=== PATIENT | male | born 1970 | race African-American/Black ===

== ENCOUNTER 2022-02-17 04:07 | Emergency (ER) | payer MEDICAID, OTHER ==
[~2022-02-17] VITALS: Ht 170.2 cm; Wt 59.0 kg
[~2022-02-17 04:07] MED LIST: ALBU18HF2 IH; FLUT1DIS3 INH; LEVO-65 MT
[2022-02-17] MEDS ORDERED: KETOROLAC 60MG/2ML VIAL IM ONE (05:15)
[2022-02-17] MEDS ORDERED: IBUP-2029 MT (06:25)
[2022-02-17] MEDS ORDERED: CYCL10TA21 MT (06:25)
[2022-02-17] MEDS ORDERED: KETOROLAC 60MG/2ML VIAL IM SCH (07:15)
[2022-02-17 08:43] VITALS: BP 130/61
== END 2022-02-17 08:44 | disposition home or self-care (01) ==
LOC: ER 04:07
DX: T14.8XXA Other injury of unspecified body region, initial encounter (principal); J45.909 Unspecified asthma, uncomplicated; F14.10 Cocaine abuse, uncomplicated; F12.10 Cannabis abuse, uncomplicated; F17.210 Nicotine dependence, cigarettes, uncomplicated; W10.8XXA Fall (on) (from) other stairs and steps, initial encounter; Y93.89 Activity, other specified; Y92.018 Other place in single-family (private) house as the place of occurrence of the external cause
CPT/HCPCS: 71045; 72131; 96372; 99284; J1885

== ENCOUNTER 2022-11-26 17:01 | Emergency (ER) | payer MEDICAID ==
[~2022-11-26] VITALS: Ht 167.6 cm; Wt 64.0 kg
[~2022-11-26 17:01] MED LIST changes: +CYCL10TA21 MT; +IBUP-2029 MT
[2022-11-26 17:02] VITALS: O2SAT 98
[2022-11-26] MEDS ORDERED: KETOROLAC 60MG/2ML VIAL IM ONE (17:15)
[2022-11-26 17:45] LABS: BASOPHILS % 0.6 % (0.0-2.0); EOSINOPHILS % 6.1 % (0.0-5.0); HEMATOCRIT. 34.5 % (42.0-52.0); HEMOGLOBIN. 11.4 g/dL (14.0-18.0); LYMPHOCYTES % 17.4 % (20.0-50.0); MEAN CORPUSCULAR HEMOGLOBIN 30.5 pg (28.0-32.0); MEAN CORPUSCULAR VOLUME 92.1 fL (80.0-94.0); MEAN PLATELET VOLUME 7.4 fl (7.4-10.4); MONOCYTES % 5.4 % (2.0-8.0); NEUTROPHILS % 70.5 % (40.0-76.0); PLATELET 328 x1000/uL (130-400); RED BLOOD CELL COUNT 3.75 mill/uL (4.7-6.1); RED CELL DISTRIBUTION WIDTH 14.6 % (11.6-14.6)
[2022-11-26 17:56] LABS: CHLORIDE 111 mEq/L (98-107)
[2022-11-26] MEDS ORDERED: MELO-105 MT (19:07)
[2022-11-26] MEDS ORDERED: KETOROLAC 30MG/ML VIAL IM NR (19:45)
[2022-11-26 19:54] VITALS: BP 134/70; PULSE 50; RESP 18; TEMP 98.5
== END 2022-11-26 19:56 | disposition home or self-care (01) ==
LOC: ER 17:01
DX: S70.01XA Contusion of right hip, initial encounter (principal); J45.909 Unspecified asthma, uncomplicated; F14.90 Cocaine use, unspecified, uncomplicated; F12.90 Cannabis use, unspecified, uncomplicated; F10.90 Alcohol use, unspecified, uncomplicated; W18.39XA Other fall on same level, initial encounter; Y93.89 Activity, other specified; Y92.89 Other specified places as the place of occurrence of the external cause; Y99.8 Other external cause status; Y90.9 Presence of alcohol in blood, level not specified; Z79.899 Other long term (current) drug therapy
CPT/HCPCS: 80053; 85025; 36415; 73502; 96372; 99284; J1885; Z7610 ×2